=== PATIENT | male | born 1960 | race Two or more races ===

== ENCOUNTER 2019-04-25 09:11 | Inpatient (IN) | payer SELFPAY ==
[~2019-04-25] VITALS: Ht 180.3 cm; Wt 99.5 kg
[2019-04-25] MEDS ORDERED: SODIUM CHLORIDE 0.9% 1,000 ML IV ONE ×2 (10:34→10:55)
[2019-04-25] MEDS ORDERED: THIAMINE 100mg/ml INJ (200mg/2ml VIAL) IV ONE ×2 (10:45→13:45)
[2019-04-25 11:19] LABS: Eosinophils # (auto) 0 uL; Hemoglobin 16.6 g/dL (13.5-17.5); Platelet Count (auto) 74 10^3/uL (140-450); White Blood Cell 6.5 10^3/uL (4.4-10.8)
[2019-04-25 11:20] LABS: Basophils # (auto) 0 uL; Basophils % (auto) 0.4 % (0.0-2.0); Hematocrit 47.1 % (41.0-53.0); Lymphocytes # (auto) 0.5 uL; Lymphocytes % (auto) 8.2 % (10.0-50.0); Mean Corpuscular Hemoglobin 37.5 pg (28.0-32.0); Mean Corpuscular Hgb Conc. 35.2 g/dL (32.0-36.0); Mean Corpuscular Volume 106.6 fL (80.0-100.0); Monocytes # (auto) 0.6 uL; Monocytes % (auto) 9.7 % (0.0-12.0); Neutrophils # (auto) 5.3 uL; Neutrophils % (auto) 81.7 % (37.0-80.0); Nucleated Red Blood Cells % 0.1 %; Red Blood Cells 4.42 10^6/uL (4.5-5.90); Red Cell Distribution Width 13.1 % (11.8-14.3)
[2019-04-25 11:33] LABS: Albumin 3.8 g/dL (3.4-5.0); Calcium 8.8 mg/dL (8.5-10.1); Potassium 3.6 mmol/L (3.5-5.1)
[2019-04-25 11:37] LABS: Bilirubin, Total 3.6 mg/dL (0.2-1.0)
[2019-04-25] MEDS ORDERED: ENOXAPARIN SOD 100 MG/1 ML SYRINGE SC ONE (12:30)
[2019-04-25] MEDS ORDERED: chlordiazePOXIDE HCL 25 MG CAP PO ONE (13:45)
[2019-04-25] MEDS ORDERED: DEXTROSE (50%) 50ML SYRG IV PRN (13:45)
[2019-04-25] MEDS ORDERED: PROMETHAZINE HCL 25 MG/ML 1ML IV PRN (13:45)
[2019-04-25] MEDS ORDERED: TEMAZEPAM 15 MG CAP PO PRN (13:45)
[2019-04-25] MEDS ORDERED: hydrALAZINE HCL 20 MG/ML VL IV PRN (13:45)
[2019-04-25] MEDS ORDERED: ALBUTEROL SULF 2.5 MG/0.5ML(0.5%) NEB SOLN NEB PRN (13:45)
[2019-04-25] MEDS ORDERED: chlordiazePOXIDE HCL 25 MG CAP PO PRN (13:45)
[2019-04-25] MEDS ORDERED: traMADol HCL 50 MG TAB PO PRN (13:45)
[2019-04-25] MEDS ORDERED: NITROGLYCERIN 0.4 MG SL TAB SL PRN (13:45)
[2019-04-25] MEDS ORDERED: MORPHINE SULF INJ 2 MG/ML SYRINGE 1ML IV PRN (13:45)
[2019-04-25] MEDS: SODIUM CHLORIDE 0.9% 1,000 ML IV SCH ×2 (14:07→21:51)
[2019-04-25 14:10] LABS: Urine WBC None Seen /hpf (0 - 3)
--- NOTE | 2019-04-25 14:10 | NUR ---
Respiratory note: Assessed pt for PRN medneb tx. HR 65, RR 18, POX 96% on room air. Breath sounds clear/diminished. No s/s of respiratory distress. Pt with no complaints of SOB at this time. Medneb tx not indicated. Educated pt on ordered medication, pt verbalized understanding. Pt aware to call for RT if breathing tx is needed.
[2019-04-25 14:11] VITALS: BP 177/47
[2019-04-25] MEDS: FAMOTIDINE (10MG/ML) 2ML VL IV SCH (14:15)
[2019-04-25] MEDS: ACETAMINOPHEN 500 MG TAB PO PRN (14:15)
[2019-04-25] MEDS: hydrALAZINE HCL 25 MG TAB PO SCH ×2 (14:16→21:51)
[2019-04-25 14:27] LABS: Urine Bacteria FEW /hpf (None Seen); Urine Blood TRACE /uL (Negative); Urine Mucus FEW (None Seen); Urine Specific Gravity 1.013 (1.001-1.035)
[2019-04-25 14:40] LABS: Alcohol, Urine < 3.0 mg/dL (0-5); Amphetamine Screen, Urine NEGATIVE (NEGATIVE); Barbiturate Scree,Urine NEGATIVE (NEGATIVE); Benzodiazephine Screen, Urine NEGATIVE (NEGATIVE); Cannabinoid Screen, Urine NEGATIVE (NEGATIVE); Cocaine Screen, Urine NEGATIVE (NEGATIVE); Opiate Scree,Urine NEGATIVE (NEGATIVE); Phencyclidine Screen, Urine NEGATIVE (NEGATIVE)
--- NOTE | 2019-04-25 15:45 | NUR ---
Telemetry admit from ER [facility] admitted to Telemetry unit after SBAR received. Patient oriented to STEPHY DONOVAN RN primary RN, unit, room, bed, and unit policies regarding patient care and visiting hours. Patient now on continuous telemetry monitoring, tele box # 57 and telemetry reading on arrival to unit is SIN[place] KALE at 59 bpm. Patient weighed on bed scale and encouraged to call if they need something. All questions and concerns addressed, patient verbalized understanding.
[2019-04-25 16:52] VITALS: BP 156/77
[2019-04-25 17:00] VITALS: BP 156/77
[2019-04-25] MEDS: chlordiazePOXIDE HCL 25 MG CAP PO SCH ×2 (18:47→23:42)
[2019-04-25] MEDS: ACCU-CHEK COMFORT CURVE STRIP VI SCH ×2 (18:47→23:43)
--- NOTE | 2019-04-25 19:16 | NUR ---
Respiratory note: ASSESSED PT FOR PRN TX PT WAS AWAKE AND ALERT NO RESP DISTRESS NOTED. HR 85, RR 16, SPO2 96% ON ROOM AIR , BS ARE CLEAR AND DIMINISHED , NO INDICATION FOR TX AT THIS TIME. PT KNOWS TO HAVE RT PAGED IF TX IS NEEDED.
--- NOTE | 2019-04-25 19:40 | NUR ---
Opening Shift Note Assumed care of patient, awake and alert. No S/S of distress/SOB or pain. Shaky at this time, cooperative to care. Noted scab on right knee. Instructed on POC and to call for assist PRN, patient verbalized understanding, call light within reach, will continue to monitor for changes Q1hr and PRN.
[2019-04-25 20:00] VITALS: BP 151/77
[2019-04-25 22:00] VITALS: BP 151/77
[2019-04-25] MEDS ORDERED: METOPROLOL TARTRATE 25 MG TAB PO SCH (22:00)
[2019-04-26] MEDS: FAMOTIDINE (10MG/ML) 2ML VL IV SCH ×2 (01:04→14:17)
[2019-04-26 04:30] VITALS: BP 153/79
[2019-04-26] MEDS: hydrALAZINE HCL 25 MG TAB PO SCH ×3 (06:25→21:30)
[2019-04-26] MEDS: ACCU-CHEK COMFORT CURVE STRIP VI SCH ×2 (06:25→12:00)
[2019-04-26] MEDS: chlordiazePOXIDE HCL 25 MG CAP PO SCH ×3 (06:25→17:29)
--- NOTE | 2019-04-26 07:30 | NUR ---
Opening Shift Note Assumed care of patient, awake and alert, lying on bed. No S/S of distress/SOB or pain. Call light within reach, 2 side rails up and bed in lowest position. Instructed on POC and to call for assist PRN, will continue to monitor for changes Q1hr and PRN.
[2019-04-26] MEDS: SODIUM CHLORIDE 0.9% 1,000 ML IV SCH ×2 (08:18→17:32)
[2019-04-26 09:00] VITALS: BP 130/81
[2019-04-26] MEDS: ENALAPRIL MALEATE 10 MG TAB PO SCH (09:35)
[2019-04-26] MEDS: THIAMINE 100mg/ml INJ (200mg/2ml VIAL) IV SCH (09:35)
[2019-04-26] MEDS: ACETAMINOPHEN 500 MG TAB PO PRN (09:42)
--- NOTE | 2019-04-26 11:04 | NUR ---
D/C Planning Per SS consult for ETOH used. Attempted to provide alcohol service resource to Pt however, Pt refused the list of providers. Informed KYAW Covarrubias.
--- NOTE | 2019-04-26 12:21 | NUR ---
PT SEEN BY DR. STREETER HE ORDERED PHYSICAL THERAPY, FOLLOW UP XRAY OF FEMUR RESULT, AND DC ACCU CHECKS.
[2019-04-26] MEDS ORDERED: MULTIPLE VITAMINS W/ MINERALS TAB PO ONE (12:45)
[2019-04-26] MEDS ORDERED: FOLIC ACID 1 MG TAB PO ONE (12:45)
[2019-04-26 12:50] VITALS: BP 124/78
[2019-04-26 14:27] LABS: Free T4 (Free Thyroxine) 0.79 ng/dL (0.89-1.76)
[2019-04-26 14:28] LABS: Folate (Folic Acid) 12.7 ng/mL (5.38-24)
[2019-04-26 14:35] LABS: INR 1.12 (0.9-1.15); Partial Thromboplastin Time 29.2 sec (23.64-32.05)
--- NOTE | 2019-04-26 16:47 | NUR ---
assessment Patient is a 58 year old male who is alert and oriented. Prior to admission patient lived home with friends and functioned independently. Patient informed me he is able to care for his own ADLs. Per patient he will return home to his prior living arrangements post discharge and family will transport him home. Patient informed me he has no post discharge needs and does not want to speak with me anymore. I informed patient he has a right to speak to a social work professor regarding all care. I informed patient he has a right to participate in any and all discharge planning. Patient does not have a POA and advanced directive. I have offered patient information on POA and advanced directives. I informed the patient the advantages and benefits of having an Advanced Directive. Patient verbalized understanding and agreed to discharge plan. Addendum: 04/28/19 at 1649 by Nery ROBERTS Amended: Links added.
[2019-04-26 16:54] VITALS: BP 136/81
--- NOTE | 2019-04-26 19:40 | NUR ---
Opening Shift Note Assumed care of patient, awake and alert. No S/S of distress/SOB or pain. Still shaky but cooperative to care. Instructed on POC and to call for assist PRN, patient verbalized understanding, call light within reach, bed alarm on, will continue to monitor for changes Q1hr and PRN.
--- NOTE | 2019-04-26 21:30 | NUR ---
Respiratory note: PT ASSESSED FOR PRN MED NEB TX. HR 62, RR 18, SPO2 96% ON R/A. NO SIGNS OF ANY RESPIRATORY DISTRESS NOTED. ADVISED PT TO CALL IF TX IS NEEDED. RT NAME AND PAGER NUMBER ON PT'S BOARD.
[2019-04-26 22:45] VITALS: BP 135/81
[2019-04-27] MEDS: chlordiazePOXIDE HCL 25 MG CAP PO SCH ×3 (00:32→13:07)
[2019-04-27] MEDS: FAMOTIDINE (10MG/ML) 2ML VL IV SCH ×2 (02:10→13:07)
[2019-04-27 05:00] VITALS: BP 147/79
[2019-04-27] MEDS: SODIUM CHLORIDE 0.9% 1,000 ML IV SCH ×2 (05:12→15:36)
[2019-04-27] MEDS: hydrALAZINE HCL 25 MG TAB PO SCH ×2 (05:59→14:00)
[2019-04-27 07:06] LABS: RPR Non Reactive (Non Reactive)
--- NOTE | 2019-04-27 07:38 | NUR ---
PRN MN TX NOT INDICATED AT HIS TIME. PT IS AWAKE, ALERT AND ORIENTED. PT ON HIGH FOWLERS, PT ON RA, 94% O2 SATS, HR 66 BPM, RR18 BPM, BS ARE CLEAR TO AUSCULTATION, SKIN IS DRY AND WARM TO THE TOUCH. RESPIRATION IS EVEN AND NON LABORED. PT DENIES SOB OR ANY OTHER RESPIRATORY DISTRESS. PT INSTRUCTED TO CALL IF MN TX IS INDICATED, PT VERBALIZED UNDERSTANDING. WILL CONTINUE TO MONITOR PT.
[2019-04-27 08:00] VITALS: BP 138/76
[2019-04-27 08:27] VITALS: BP 138/76
[2019-04-27] MEDS ORDERED: MULTIPLE VITAMINS W/ MINERALS TAB PO SCH (10:00)
[2019-04-27] MEDS ORDERED: FOLIC ACID 1 MG TAB PO SCH (10:00)
--- NOTE | 2019-04-27 10:01 | NUR ---
PT Patient refused to be OOB during morning PT visit with c/o pain to both LE. Addendum: 04/27/19 at 1002 by DELIO ROSALES PTT Amended: Links added.
[2019-04-27] MEDS: ACETAMINOPHEN 500 MG TAB PO PRN (10:31)
[2019-04-27] MEDS: ENALAPRIL MALEATE 10 MG TAB PO SCH (10:31)
[2019-04-27] MEDS: THIAMINE 100mg/ml INJ (200mg/2ml VIAL) IV SCH (10:32)
--- NOTE | 2019-04-27 12:00 | NUR ---
DR. ABDI AT BEDSIDE. POC DISCUSSED WITH PT. PT REFUSED SURGERY OF LARGE LEFT INGUINAL HERNIA REPAIR. RISKS AND BENEFITS EXPLAINED BY DR. ABDI.
[2019-04-27 12:48] VITALS: BP 144/74
[2019-04-27 14:42] VITALS: BP 138/76
--- NOTE | 2019-04-27 16:24 | NUR ---
Discharge instructions given as ordered. Pt does not have insurance, ER voucher given to pt. All questions and concerns addressed. Patient verbalized understanding. Medication reconciliation form completed and copy given to patient. IV removed with catheter intact, pressure dressing applied. Telemetry unit returned to [facility]. Patient taken to vehicle via wheelchair with all personal belongings, accompanied by staff and family member. No distress noted at time of departure.
== END 2019-04-27 16:21 | disposition home or self-care (01) | DRG 394 ==
LOC: EDBD 09:11 → ER 09:11 → TELE 09:12 → TELE-WESTW 15:57
PROVIDERS: ADMIT Internal Medicine; ATTEND Internal Medicine
DX: K40.90 Unilateral inguinal hernia, without obstruction or gangrene, not specified as recurrent (principal); M62.82 Rhabdomyolysis; F10.231 Alcohol dependence with withdrawal delirium; E87.1 Hypo-osmolality and hyponatremia; E86.0 Dehydration; Z53.20 Procedure and treatment not carried out because of patient's decision for unspecified reasons; I11.0 Hypertensive heart disease with heart failure; I50.9 Heart failure, unspecified; K42.9 Umbilical hernia without obstruction or gangrene; M79.605 Pain in left leg; M79.604 Pain in right leg; R73.9 Hyperglycemia, unspecified; D69.6 Thrombocytopenia, unspecified; E66.9 Obesity, unspecified; Z68.30 Body mass index [BMI] 30.0-30.9, adult; Z88.8 Allergy status to other drugs, medicaments and biological substances; Z71.41 Alcohol abuse counseling and surveillance of alcoholic
CPT/HCPCS: 36415; 70450; 71250; 74176; 80053; 80307; 81001; 82550; 82607; 82746; 82962; 83036; 83880; 84439; 84443; 84484; 85025; 85610; 85730; 86592; 93005; 93306; G0378; J3490

== ENCOUNTER 2019-04-28 16:46 | Emergency (ER) | payer SELFPAY ==
[~2019-04-28] VITALS: Ht 172.7 cm; Wt 104.3 kg
[2019-04-28 17:00] VITALS: BP 141/86
== END 2019-04-29 00:58 | disposition left against medical advice (07) ==
LOC: ER 16:46
DX: N50.812 Left testicular pain (principal); Z53.21 Procedure and treatment not carried out due to patient leaving prior to being seen by health care provider

== ENCOUNTER 2019-11-20 15:21 | Inpatient (IN) | payer MEDICAID ==
[~2019-11-20] VITALS: Ht 180.3 cm; Wt 92.1 kg
[2019-11-20 16:08] LABS: Basophils # (auto) 0 10 ^3/uL (0-0.2); Eosinophils # (auto) 0 10 ^3/uL (0-0.8); Eosinophils % (auto) 0.5 % (0.0-7.0); Hematocrit 44.2 % (41.0-53.0); Lymphocytes # (auto) 0.3 10 ^3/uL (0.4-5.4); Mean Corpuscular Volume 112.9 fL (80.0-100.0); Monocytes # (auto) 0.3 10 ^3/uL (0-1.3); Monocytes % (auto) 8.7 % (0.0-12.0); Neutrophils # (auto) 3.1 10 ^3/uL (1.6-8.6); Red Blood Cells 3.92 10^6/uL (4.5-5.90); White Blood Cell 3.7 10^3/uL (4.4-10.8)
[2019-11-20 16:10] LABS: Basophils % (auto) 0.6 % (0.0-2.0); Hemoglobin 15.3 g/dL (13.5-17.5); Lymphocytes % (auto) 7.8 % (10.0-50.0); Mean Corpuscular Hemoglobin 39.2 pg (28.0-32.0); Mean Corpuscular Hgb Conc. 34.7 g/dL (32.0-36.0); Neutrophils % (auto) 82.4 % (37.0-80.0); Nucleated Red Blood Cells % 0.6 %; Platelet Count (auto) 98 10^3/uL (140-450); Red Cell Distribution Width 12.5 % (11.8-14.3)
[2019-11-20 16:17] LABS: Albumin 3.7 g/dL (3.4-5.0); Anion Gap 10 (5-15); Blood Urea Nitrogen 10 mg/dL (7-18); Calcium 8.6 mg/dL (8.5-10.1); Carbon Dioxide 22 mmol/L (21-32); Chloride 105 mmol/L (98-107); Glucose 124 mg/dL (74-106); Magnesium 2.1 mg/dL (1.6-2.6); Potassium 3.9 mmol/L (3.5-5.1); Sodium 137 mmol/L (136-145)
[2019-11-20 16:23] LABS: Alanine Aminotransferase 47 U/L (16-61); Alkaline Phosphatase 65 U/L (45-117); Aspartate Aminotransferase 67 U/L (15-37); BUN/Creatinine Ratio 11.9; Bilirubin, Total 1.5 mg/dL (0.2-1.0); GFR African American 120 mL/min; GFR Non-African American 99 mL/min; Total Protein 7.8 g/dL (6.4-8.2)
[2019-11-20 16:25] LABS: INR 1.04 (0.9-1.15); Partial Thromboplastin Time 27.3 sec (23.64-32.05)
[2019-11-20] MEDS ORDERED: LORazepam 2MG/ML-1ML VIAL IV ONE (17:30)
[2019-11-20] MEDS ORDERED: SODIUM CHLORIDE 0.9% 1,000 ML IV ONE (17:30)
[2019-11-20] MEDS ORDERED: THIAMINE HCL 100 MG TAB PO ONE (19:15)
[2019-11-20] MEDS ORDERED: cefTRIAXone 1GM/50ML D5W 50 ML IV ONE (19:15)
[2019-11-20 19:44] LABS: Amphetamine Screen, Urine NEGATIVE (NEGATIVE); Barbiturate Scree,Urine NEGATIVE (NEGATIVE); Benzodiazephine Screen, Urine NEGATIVE (NEGATIVE); Cannabinoid Screen, Urine NEGATIVE (NEGATIVE); Cocaine Screen, Urine NEGATIVE (NEGATIVE); Opiate Scree,Urine NEGATIVE (NEGATIVE); Phencyclidine Screen, Urine NEGATIVE (NEGATIVE)
[2019-11-20] MEDS ORDERED: ACETAMINOPHEN 325 MG TAB PO ONE (20:45)
[2019-11-20] MEDS ORDERED: SODIUM CHLORIDE 0.9% 1,000 ML IV SCH (21:14)
[2019-11-20] MEDS ORDERED: cloNIDine HCL 0.1 MG TAB PO PRN (21:15)
[2019-11-20] MEDS ORDERED: ACETAMINOPHEN 325 MG TAB PO PRN (21:15)
[2019-11-20] MEDS ORDERED: TEMAZEPAM 15 MG CAP PO PRN (21:15)
[2019-11-20] MEDS ORDERED: ONDANSETRON HCL 4 MG/2 ML VIAL IV PRN (21:15)
[2019-11-20] MEDS ORDERED: NITROGLYCERIN 0.4 MG SL TAB SL PRN (21:45)
[2019-11-20] MEDS ORDERED: MORPHINE SULF INJ 2 MG/ML SYRINGE 1ML IV PRN (21:45)
[2019-11-20] MEDS ORDERED: ALBUTEROL SULF HFA 90MCG INH 200DOSE IN SCH (22:00)
[2019-11-20 22:46] LABS: Urine Bacteria NONE SEEN /hpf (None Seen); Urine Blood Negative /uL (Negative); Urine Mucus FEW (None Seen); Urine Specific Gravity 1.022 (1.001-1.035); Urine WBC 1 /hpf (0 - 3)
[2019-11-20] MEDS: FAMOTIDINE 20 MG TAB PO SCH (22:51)
[2019-11-20] MEDS: GABAPENTIN 100 MG CAP PO SCH (22:51)
[2019-11-20] MEDS: AZITHROMYCIN 500MG/D5WorNS 250ml IV SCH (22:51)
--- NOTE | 2019-11-20 23:30 | NUR ---
Telemetry admit from ER [facility] admitted to Telemetry unit after SBAR received. Patient oriented to SHAUN WAGNER RN primary RN, unit, room, bed, and unit policies regarding patient care and visiting hours. Patient now on continuous telemetry monitoring, tele box #2 and telemetry reading on arrival to unit is NSR. Upon arrival, patient A&O x4, no s/s of distress or SOB noted. Bed locked and left in the lowest position with the side rails up x2 and the call light is left within reach. Patient placed weighed by bedscale and encouraged to call if they need something. All questions and concerns addressed, patient verbalized understanding.
[2019-11-21] VITALS: BP 137/84
[2019-11-21] MEDS: chlordiazePOXIDE HCL 5 MG CAP PO PRN ×3 (00:06→12:23)
[2019-11-21 04:00] VITALS: BP 156/87
--- NOTE | 2019-11-21 04:40 | NUR ---
Continuation of Care Assumed care of patient for continuation of care. Patient in bed, eyes closed, respirations even and unlabored, appears asleep. No S/S of distress/SOB or pain. Bed in lowest locked position, side rails up x2, call light within reach. Instructed on POC and to call for assist PRN, will continue to monitor for changes Q1hr and PRN.
--- NOTE | 2019-11-21 07:00 | NUR ---
No diet order noted, device sales consultant hospitalist dorothea, awaiting call back at this time. Addendum: 11/21/19 at 0704 by UZIEL RIVERA RN RN ADDITION: Return call from device sales consultant hospitalist Reynaldo Varela NP, new order received for regular diet. Order read back and verified, will implement as ordered and continue to monitor.
--- NOTE | 2019-11-21 07:00 | NUR ---
Closing Note Patient lying in bed, eyes closed, respirations even and unlabored, appears asleep. Patient awakens to name and touch. Bed in lowest locked position, side rails up x2, call light within reach, bed alarm on. Care endorsed to dayshift RN.
[2019-11-21 07:04] LABS: Basophils # (auto) 0 10 ^3/uL (0-0.2)
[2019-11-21 07:07] LABS: Basophils % (auto) 0.7 % (0.0-2.0); Eosinophils # (auto) 0.1 10 ^3/uL (0-0.8); Eosinophils % (auto) 1.8 % (0.0-7.0); Hematocrit 41.8 % (41.0-53.0); Hemoglobin 14.3 g/dL (13.5-17.5); Lymphocytes # (auto) 0.6 10 ^3/uL (0.4-5.4); Lymphocytes % (auto) 14.1 % (10.0-50.0); Mean Corpuscular Hemoglobin 39.6 pg (28.0-32.0); Mean Corpuscular Hgb Conc. 34.3 g/dL (32.0-36.0); Mean Corpuscular Volume 115.4 fL (80.0-100.0); Monocytes # (auto) 0.5 10 ^3/uL (0-1.3); Monocytes % (auto) 10.9 % (0.0-12.0); Neutrophils # (auto) 3.1 10 ^3/uL (1.6-8.6); Neutrophils % (auto) 72.5 % (37.0-80.0); Platelet Count (auto) 98 10^3/uL (140-450); Red Blood Cells 3.62 10^6/uL (4.5-5.90); Red Cell Distribution Width 12.7 % (11.8-14.3); White Blood Cell 4.2 10^3/uL (4.4-10.8)
[2019-11-21 07:27] LABS: Albumin 3.1 g/dL (3.4-5.0); BUN/Creatinine Ratio 13.8; Calcium 8.5 mg/dL (8.5-10.1); Potassium 3.7 mmol/L (3.5-5.1)
[2019-11-21 07:30] LABS: Total Protein 6.9 g/dL (6.4-8.2)
--- NOTE | 2019-11-21 07:53 | NUR ---
OPENING SHIFT NOTE ASSUMED CARE OF PT. PT AWAKE AND ALERT. PT IS SITTING UP EATING BREAKFAST IN BED WITH NO SIGNS OF DISTRESS. INSTRUCTED ON POC AND TO CALL FOR ASSISTANCE PRN. BED IS IN LOW AND LOCKED POSITION WITH SIDE RAILS UP X2. CALL LIGHT WITHIN REACH. WILL CONTINUE TO MONITOR.
[2019-11-21 08:00] VITALS: BP 150/83
[2019-11-21 08:28] LABS: CRP High Sensitivity 0.31 mg/dL (< 0.3); Magnesium 2.2 mg/dL (1.6-2.6)
[2019-11-21] MEDS ORDERED: ASCORBIC ACID 1,000 MG TAB PO SCH (10:00)
[2019-11-21] MEDS ORDERED: ZINC SULFATE 220mg CAP or TAB PO SCH (10:00)
[2019-11-21] MEDS: GABAPENTIN 100 MG CAP PO SCH ×2 (10:11→22:20)
[2019-11-21] MEDS: CHOLECALCIFEROL (VITD3) 1,000IU=25mCg TAB PO SCH (10:11)
[2019-11-21] MEDS: ENOXAPARIN SOD 40 MG/0.4 ML SYRINGE SC SCH (10:11)
[2019-11-21] MEDS: FOLIC ACID 1 MG TAB PO SCH (10:11)
[2019-11-21] MEDS: FAMOTIDINE 20 MG TAB PO SCH ×2 (10:11→22:20)
[2019-11-21] MEDS: THIAMINE HCL 100 MG TAB PO SCH (10:13)
[2019-11-21] MEDS: amLODIPine BESYLATE 5 MG TAB PO SCH (10:33)
--- NOTE | 2019-11-21 11:26 | NUR ---
COVID RESULTS IN. CHARGE NURSE NOTIFIED.
--- NOTE | 2019-11-21 12:39 | NUR ---
TRANSFERRED PT OUT TO [facility]. DURING TRANSFER PT DEVELOPED TREMORS AND EXTREME ANXIETY. PRN WITHDRAW MEDICATION ADMINISTERED PRIOR TO TRANSFER. PT TRANSFERRED SAFELY TO FLOOR BED WITH RECONCILIATION SPECIALIST.
--- NOTE | 2019-11-21 12:40 | NUR ---
Received patient from [facility], patient alert, oriented x 3 and verbally responsive. Skin is warm and dy to touch. No respiratory distress noted. Place a call light within reach. Will continue to monitor.
[2019-11-21 13:00] VITALS: BP 134/93
--- NOTE | 2019-11-21 14:22 | NUR ---
Patient has 2 knifes in valuable bag. Per Isabel (house sup) instructed to place at nursing station.
[2019-11-21 17:00] VITALS: BP 154/92
--- NOTE | 2019-11-21 17:41 | NUR ---
2 knifes placed in the safe by Isabel (house sup).
[2019-11-21] MEDS: chlordiazePOXIDE HCL 25 MG CAP PO SCH (17:47)
--- NOTE | 2019-11-21 20:55 | NUR ---
Opening Shift Note Assumed care of patient, awake and alert. No S/S of distress/SOB or pain. Instructed on POC and to call for assist PRN, will continue to monitor for changes Q1hr and PRN. BSC provided to easy ambulation if having urge to empty bowel.
[2019-11-21] MEDS ORDERED: cefTRIAXone 1GM/50ML D5W 50 ML IV SCH (21:00)
--- NOTE | 2019-11-21 21:12 | NUR ---
Opening Shift Note Assumed care of patient, awake and alert. No S/S of distress/SOB or pain. Instructed on POC and to call for assist PRN, will continue to monitor for changes Q1hr and PRN.
[2019-11-21 22:00] VITALS: BP 146/98
[2019-11-21] MEDS: AZITHROMYCIN 500MG/D5WorNS 250ml IV SCH (22:20)
[2019-11-22] MEDS: chlordiazePOXIDE HCL 25 MG CAP PO SCH ×4 (00:27→17:22)
--- NOTE | 2019-11-22 04:41 | NUR ---
Assisted patient to the patient, warm bath given, cloths changed, bed linen changed.
[2019-11-22 05:00] VITALS: BP 140/91
--- NOTE | 2019-11-22 07:47 | NUR ---
Opening Note Assumed pt care from NOC RN. Pt is a/ox4 with no s/s of distress or SOB. Pt is currently laying in bed with mild c/o pain in both feet, discussed pain relieving interventions. Discussed POC with pt and pending consults; pt verbalized understanding. Redness and irritation noted to both of pt's feet. Scrotal swelling noted. Safety measures maintained with call light within reach, bed in lowest position and side rails up. Will continue to monitor.
[2019-11-22 08:32] VITALS: BP 138/77
[2019-11-22] MEDS: FAMOTIDINE 20 MG TAB PO SCH ×2 (09:11→21:28)
[2019-11-22] MEDS: amLODIPine BESYLATE 5 MG TAB PO SCH (09:12)
[2019-11-22] MEDS: FOLIC ACID 1 MG TAB PO SCH (09:12)
[2019-11-22] MEDS: THIAMINE HCL 100 MG TAB PO SCH (09:12)
[2019-11-22] MEDS: CHOLECALCIFEROL (VITD3) 1,000IU=25mCg TAB PO SCH (09:12)
[2019-11-22] MEDS: GABAPENTIN 100 MG CAP PO SCH ×2 (09:12→21:28)
[2019-11-22] MEDS: ENOXAPARIN SOD 40 MG/0.4 ML SYRINGE SC SCH (09:13)
--- NOTE | 2019-11-22 10:28 | NUR ---
Received Social Service consult regarding pt being homeless. However, this is not the case. Pt and his significant other rent a room in [place]. Pt has a part-time job at a liquor store. Pt at this time is refusing placement options at this time. However, Pt may be interested in some clothing prior to D/C ( Pt may be interested in a taxi home. Pt offered taxi voucher with in 30 miles. Pt states he may need transportation home to [place]. Will follow up and provide intervention as appropriate. Gave pt information on alcohol Rehab especially to [facility]. [phone],alcoholic/drug abuse, and [facility] [phone] Addendum: 11/22/19 at 1353 by MADINA LANCE SS Amended: Links added.
--- NOTE | 2019-11-22 10:51 | NUR ---
Received Social Service consult to see pt due to homelessness. However, Pt is not homeless. Pt states he rents a room with his significant other. 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 Pt,s medical issue is that he has spasms in his legs and is having a hard time walking. Will follow up and provide interventions as appropriate . Gave pt substance abuse resources, such as AA in [place] [id number], [facility], , [facility] [phone].
[2019-11-22 12:30] VITALS: BP 95/72
[2019-11-22] MEDS: AZITHROMYCIN 250 MG TAB PO SCH (14:12)
[2019-11-22] MEDS ORDERED: ACET-1304 PO ×2 (15:24)
[2019-11-22 17:07] VITALS: BP 132/78
--- NOTE | 2019-11-22 19:08 | NUR ---
Received report from day shift RN. Will continue care
[2019-11-22 20:00] VITALS: BP 98/40
[2019-11-22] MEDS ORDERED: cefTRIAXone 1GM/50ML D5W 50 ML IV SCH (20:00)
[2019-11-22] MEDS ORDERED: AZITHROMYCIN 500MG/ 250ML 250 ML IV SCH (21:00)
[2019-11-22 22:08] VITALS: BP 115/67
--- NOTE | 2019-11-22 23:09 | NUR ---
Opening Shift Note Assumed care of patient, awake and alert. No S/S of distress/SOB or pain. Instructed on POC and to call for assist PRN, bedside commode in place, personal belongings, call light within reach. Side rails up X2 patient prefers to lay flat. will continue to monitor for changes Q1hr and PRN.
[2019-11-23 05:00] VITALS: BP 119/68
[2019-11-23] MEDS: chlordiazePOXIDE HCL 25 MG CAP PO SCH ×3 (06:03→11:48)
--- NOTE | 2019-11-23 07:48 | NUR ---
Opening Note Assumed pt care from NOC RN. Pt is a/ox4 with no s/s of distress or SOB. Pt is currently laying in bed with no complaints at this time. Scrotal swelling apparent. Redness and dryness to both of pt's feet noted. Discussed POC with pt and pending consults; pt verbalized understanding. Safety measures maintained with call light within reach, bed in lowest position and side rails up. Will continue to monitor for changes.
[2019-11-23 08:05] VITALS: BP 110/56
[2019-11-23] MEDS: AZITHROMYCIN 250 MG TAB PO SCH (09:00)
[2019-11-23] MEDS: CHOLECALCIFEROL (VITD3) 1,000IU=25mCg TAB PO SCH (09:01)
[2019-11-23] MEDS: GABAPENTIN 100 MG CAP PO SCH (09:01)
[2019-11-23] MEDS: THIAMINE HCL 100 MG TAB PO SCH (09:01)
[2019-11-23] MEDS: FAMOTIDINE 20 MG TAB PO SCH (09:01)
[2019-11-23] MEDS: amLODIPine BESYLATE 5 MG TAB PO SCH (09:01)
[2019-11-23] MEDS: FOLIC ACID 1 MG TAB PO SCH (09:02)
[2019-11-23] MEDS: ENOXAPARIN SOD 40 MG/0.4 ML SYRINGE SC SCH (09:02)
[2019-11-23 12:30] VITALS: BP 131/79
--- NOTE | 2019-11-23 13:12 | NUR ---
Dr Thomas at Bedside MD to see pt. Plans to d/c pt home later this evening. Will continue to monitor.
[2019-11-23] MEDS ORDERED: LEVO500T21 PO ×2 (15:26)
[2019-11-23] MEDS ORDERED: AMLO10TA13 PO ×2 (15:26)
[2019-11-23] MEDS ORDERED: GABA100C9 PO ×2 (15:27)
[2019-11-23] MEDS ORDERED: HYD1TP TOP ×2 (15:31)
[2019-11-23] MEDS ORDERED: CEPH-37 PO ×2 (15:35)
[2019-11-23] MEDS ORDERED: HYDR12.56 PO ×2 (15:35)
[2019-11-23 15:42] VITALS: BP 131/79
--- NOTE | 2019-11-23 16:02 | NUR ---
IV and Tele Box 42 Removed IV to pt;s R FA removed. Catheter was removed fully intact. Site is asymptomatic. Pressure was applied to site for 3 minute with gauze and then wrapped in coban. Pt instructed to keep dressing on for 30 minutes; pt verbalized understanding. Tele 42 Removed and sent back to ICU Staff made aware of d/c and sending of monitor. Sent back via [facility] system.
--- NOTE | 2019-11-23 17:10 | NUR ---
Pt D/C'ed Off Unit Pt ambulated off unit without any difficulty. Pt is a/ox4 with no s/s of distress or SOB. PT aware of need to see follow up appointments. Pt provided all contact information, prescription information, as well as all education material. Pt d/c'ed with all belongings. IV and tele box was removed prior to d/c. All questions were answered.
== END 2019-11-23 17:10 | disposition home or self-care (01) | DRG 137 ==
LOC: EDBD 15:21 → ER 15:21 → EDUNIT# 15:21 → TELE 15:22 → TELE-EAST 23:20 → TELE-CENTR 11-21 12:35
PROVIDERS: ADMIT Nurse Practitioner; ATTEND Internal Medicine Nephrology
DX: J15.6 Pneumonia due to other Gram-negative bacteria (principal); D69.6 Thrombocytopenia, unspecified; L03.115 Cellulitis of right lower limb; G62.9 Polyneuropathy, unspecified; L03.116 Cellulitis of left lower limb; F10.229 Alcohol dependence with intoxication, unspecified; F10.239 Alcohol dependence with withdrawal, unspecified; I10 Essential (primary) hypertension; K40.90 Unilateral inguinal hernia, without obstruction or gangrene, not specified as recurrent; D72.819 Decreased white blood cell count, unspecified; F17.210 Nicotine dependence, cigarettes, uncomplicated; Z59.0 Homelessness; Z71.41 Alcohol abuse counseling and surveillance of alcoholic; Z20.828 Contact with and (suspected) exposure to other viral communicable diseases
CPT/HCPCS: 36415; 71045; 76870; 80053; 80307; 80320; 81001; 82728; 83605; 83615; 83735; 83880; 84443; 84484; 85025; 85610; 85730; 86141; 87040; 87070; 87804; 87880; 93925; 93970; G0378; J0696

== ENCOUNTER 2019-11-24 19:58 | Emergency (ER) | payer MEDICAID ==
[~2019-11-24] VITALS: Ht 182.9 cm; Wt 81.6 kg
[~2019-11-24 19:58] MED LIST: ACET-1304 PO; AMLO10TA13 PO; CEPH-37 PO; GABA100C9 PO; HYD1TP TOP; HYDR12.56 PO; LEVO500T21 PO
[2019-11-24 20:16] VITALS: BP 135/76
== END 2019-11-25 02:00 | disposition home or self-care (01) ==
LOC: EDBD 19:58 → ER 20:02
DX: F10.129 Alcohol abuse with intoxication, unspecified (principal); R41.82 Altered mental status, unspecified; I10 Essential (primary) hypertension; F17.210 Nicotine dependence, cigarettes, uncomplicated; Z59.0 Homelessness; Z79.2 Long term (current) use of antibiotics; Z79.899 Other long term (current) drug therapy; Z88.8 Allergy status to other drugs, medicaments and biological substances; Y90.6 Blood alcohol level of 120-199 mg/100 ml
CPT/HCPCS: 36415; 80320